=== PATIENT | male | born 1985 | race Caucasian/White ===

== ENCOUNTER 2019-01-29 10:56 | Day surgery (SDC) | payer OTHER ==
[2019-01-25 17:12] VITALS: BMI 31.3
[~2019-01-29 10:56] MED LIST: LACTATED RINGERS 1,000 ML IV SCH; LIDOCAINE 1% 20 ML VIAL (10MG/ML) FOR IV START INTRADERMA PRN
[2019-01-29 11:16] VITALS: TEMP 97.9
[2019-01-29] MEDS ORDERED: LIDOCAINE 1% INJ 10MG/ML (20 ML MDV) ONE (12:57)
[2019-01-29] MEDS ORDERED: PROPOFOL 10 MG/ML 20 ML VIAL IV ONE (12:57)
[2019-01-29 13:25] VITALS: RESP 18
--- NOTE | 2019-01-29 13:26 | P.PCN ---
Date of Procedure: 01/29/19 Procedure(s) Performed: Procedure: Esophagogastroduodenoscopy and biopsy. Preoperative diagnosis: Chronic reflux symptoms requiring PPI for control. Postoperative diagnosis: 1. Hiatal hernia with no obvious esophagitis or complicated reflux disease. 2. Mild antral gastritis. 3. Multiple biopsies obtained from the duodenum, antrum and esophagus. Preparation and sedation: Was provided by anesthesia. Brief clinical history: The patient is a 33-year-old male who has been experiencing reflux for around 6 years requiring Prilosec for control with recurrence of his symptoms after missing even 1 dose. No alarm symptoms. The patient has in addition issues with nausea and diarrhea and has possible irr itable bowel. This evaluation is to assess for esophagitis, complicated reflux disease or other pathology. Procedure: With the patient on his left lateral decubitus position and after informed consent and adequate sedation, I passed the Olympus-GIF H190 video upper endoscope through the cricopharyngeus down the esophagus. GE junction was around 36 cm from the incisors and there was a 2-3 cm sliding hiatal hernia but no definite esophagitis or complicated reflux disease. The endoscope was then passed into the stomach which was insufflated with air and inspected in detail including the retroflex view in the cardia. There was some mottling and erythema in the antrum but no ulcers or erosions. Pyloric channel, duodenal bulb, post bulbar area and descending duodenum appeared within normal limits. Because of his symptoms, I obtained biopsies from the duodenum, antrum and esophagus then the endoscope was withdrawn. The patient tolerated the procedure well. Plan: The patient was reassured. Will await biopsy results. I suggested antireflux diet and measures and to continue with any acid suppressive therapy required to keep his symptoms under control. If this can be accomplished with H2 blockers this is preferred long time, otherwise, using omeprazole will have to be continued. I will be happy to see in the office if his symptoms remain difficult to control. He will follow up with you as planned.
[2019-01-29 13:51] VITALS: BP 113/70; PULSE 85
== END 2019-01-29 14:22 | disposition home or self-care (01) ==
LOC: ORWHC2ENDO 10:56
DX: K29.50 Unspecified chronic gastritis without bleeding (principal); K20.0 Eosinophilic esophagitis; K21.9 Gastro-esophageal reflux disease without esophagitis; K44.9 Diaphragmatic hernia without obstruction or gangrene; F17.210 Nicotine dependence, cigarettes, uncomplicated; Z88.5 Allergy status to narcotic agent; Z79.899 Other long term (current) drug therapy
CPT/HCPCS: 88305; 43239; J2001; J2704